=== PATIENT | male | born 1970 | race Caucasian/White ===

== ENCOUNTER 2018-01-13 11:04 | Emergency (ER) | payer SELFPAY ==
[~2018-01-13] VITALS: Ht 185.4 cm; Wt 111.3 kg
[2018-01-13 11:52] LABS: HEMATOCRIT 41.9 % (38.0-50.0); HEMOGLOBIN 14.1 G/DL (12.5-16.6); MCH 30.3 PG (29.0-34.0); MCHC 33.7 G/DL (30.0-36.0); MCV 89.9 FL (86-99); PLATELET COUNT 325 K/uL (156-360); RBC DIS.WIDTH-CV 13.2 % (11.8-14.6); RBC DIS.WIDTH-SD 43.4 % (39-53); RED BLOOD COUNT 4.66 M/uL (4.00-5.50)
[2018-01-13 12:02] LABS: ALBUMIN 4.4 g/dL (3.2-4.8); CHLORIDE 109 mEq/L (99-109); POTASSIUM 4.1 mEq/L (3.7-5.4); SODIUM 141 mEq/L (136-147)
[2018-01-13 12:04] LABS: GLUCOSE 115 mg/dL (70-99); TOTAL PROTEIN 7.6 g/dL (6.4-8.3)
[2018-01-13 12:06] LABS: TOTAL BILIRUBIN 0.4 mg/dL (0.0-1.0)
[2018-01-13 12:08] LABS: ALKALINE PHOSPHATASE 127 IU/L (3-129); CREATININE 1.1 mg/dL (0.6-1.3); GFR ESTIMATE (CALCULATED) > 59 mL/min/ (58.99-99999)
[2018-01-13 12:09] LABS: UREA NITROGEN (BUN) 12 mg/dL (9-23)
[2018-01-13 12:10] LABS: AST (GOT) 27 IU/L (2-34)
[2018-01-13 12:11] LABS: ALT (GPT) 35 IU/L (3-49)
[2018-01-13 13:33] LABS: LIPASE 30 U/L (1.0-51.0)
[2018-01-13 13:34] LABS: PTT 23.9 SEC (25-37)
[2018-01-13 16:24] VITALS: BP 166/97
== END 2018-01-13 16:24 | disposition home or self-care (01) ==
LOC: EME 11:04
DX: K92.2 Gastrointestinal hemorrhage, unspecified (principal); R10.9 Unspecified abdominal pain; F10.20 Alcohol dependence, uncomplicated; Z88.0 Allergy status to penicillin
CPT/HCPCS: 74177; 80053; 81003; 83690; 85027; 85610; 85730; 86850; 86900; 86901; 99281; 99284; J7030